=== PATIENT | female | born 1965 | race Caucasian/White ===

== ENCOUNTER 2020-11-25 16:58 | Emergency (ER) | payer BC, SELFPAY ==
[2020-11-25 17:05] VITALS: BP 146/70; PULSE 86; RESP 16; TEMP 36.4; O2SAT 97
--- NOTE | 2020-11-25 17:15 | DI.RAD_ITS ---
Exam(s) XR ANKLE RT COMPLETE EXAM: XR ANKLE RT COMPLETE CLINICAL HISTORY: lateral pain after rotational injury TECHNIQUE: COMPARISON: No exams were available for comparison FINDINGS: Three views were obtained. There is marked soft tissue swelling around the ankle. There may be a anjelica int effusion. No acute fracture identified. Ankle mortise is well maintained. IMPRESSION: RADIATION DOSE DELIVERED: Total DLP
--- NOTE | 2020-11-25 17:16 | W.ED.GENAD ---
Discharge Plan Disposition Patient Disposition: HOME Condition: Good Discharge Details Clinical Impression: Ankle sprain Primary Care Provider: [facility] Provider: Cassie Campa Home Meds and New Rx's Prescriptions: Continued estradiol 0.05 mg/24 hr Patch Weekly 1 patch transdermal .TWICE A WEEK RF: 0 hydrochlorothiazide 100 mg Tablet 100 mg PO DAILY RF: 0 furosemide 20 mg Tablet 20 mg PO DAILY RF: 0 Discharge Instructions Instructions: Ankle Sprain (ED) Additional Instructions: Imaging is reassuring here today. No evidence of fracture. However, I am concerned that you have a significant sprain. Please encourage rest, ice, elevation. Tylenol and/or ibuprofen as needed for discomfort. Please keep splint on until reevaluated by primary care. Please follow-up with your primary care in 2 weeks for reevaluation. If you develop any new or worsening symptoms please seek care urgently once again. Referrals: Samson Chu [ [facility] STAFF PHYSICIAN] - Medical Decision Making Patient is a pleasant 55-year-old female presenting today with chief complaint of right ankle pain. She reports the pain began 4 days ago after she slipped off a log and suffered a rotational injury. She denies other injury at the time of the incident. She did not strike her head, no loss of consciousness. No previous injury or surgery to this ankle. Patient has been ambulating well since the time of the injury but continues to have pain over the lateral malleolus. She denies any radiation of pain. No numbness or tingling. On exam, patient has notable swelling over the lateral malleolus without proximal foot. Associated ecchymosis. 2+ distal pulses. Sensation is intact. She is good range of motion. Achilles is intact. Sensation is intact. No pain over the proximal fibula. Concern for fracture. Patient declines any analgesics. Will obtain x-ray to evaluate for potential fracture. FINDINGS: Bones/joints: No fractures. No blastic or lytic lesions. The ankle mortise joint is well maintained. Moderate ankle joint effusion. The visualized hindfoot and midfoot are grossly well aligned. No hindfoot coalition. Mild spurring at the Achilles calcaneal attachment. Soft tissues: No periostitis or osteolysis. Moderate soft tissue swelling around the ankle, predominantly laterally. No radiopaque foreign bodies. IMPRESSION: 1. No fracture or dislocation. 2. Soft tissue swelling and moderate joint effusion. Discussed the findings with the patient. Diagnosed with sprain. Encourage rest, ice, elevation. Tylenol and ibuprofen as needed for discomfort. She will be fitted with a lace up ankle brace. Advise follow-up with primary care in 2 weeks. Patient has had prolonged healing issues from sprain on the contralateral side. I did advise that she discuss physical therapy with primary care at that time. Return precautions were discussed. All the questions and concerns were addressed and she is in agreement this plan. HPI General Mode of arrival: ambulatory. Date/Time Provider Initiated Documentation: 11/25/20 17:16. Limitations to Documentation: no limitations. Information obtained by: patient and RN notes reviewed. History of Present Illness 55 year old F presents to the emergency department with the chief complaint of right ankle pain, described as moderate, with intensity rated at 5. Quality is described as aching, and is localized to the right and lower extremity. Patient reports no radiation. Patient started experiencing this day(s) (4) and it has been constant. Immobilization improves symptom(s), Movement worsens symptoms . Patient notes no other symptoms.. Patient did receive the following treatments prior to arrival, none Related Data Home Medications Medication Instructions Recorded Confirmed estradiol 1 patch TRANSDERMAL .TWICE A WEEK 11/25/20 11/25/20 furosemide 20 mg PO DAILY 11/25/20 11/25/20 hydrochlorothiazide 100 mg PO DAILY 11/25/20 11/25/20 Allergies Allergy/AdvReac Type Severity Reaction Status Date / Time Sulfa (Sulfonamide AdvReac Nausea Unverified 11/25/20 17:10 Antibiotics) General Stated Complaint: Orthopedic LORENZA: 4 Review of Systems Constitutional Constitutional: Reports as per HPI, Denies chills, Denies fever(s), Denies headache(s) and Denies weakness ENT Ears, Nose, Mouth, and Throat: Denies headache(s) Cardiovascular Cardiovascular: Reports as per HPI Respiratory Respiratory: Reports as per HPI and Denies cough Musculoskeletal Musculoskeletal: Reports as per HPI and Denies tingling Integumentary/Breasts Skin/Breast: Reports as per HPI, Denies rash and Denies wounds Neurologic Neurologic: Reports as per HPI, Denies headache(s), Denies tingling, Denies paresthesias and Denies weakness [facility] Social History (Reviewed 11/25/20 @ 17:31 by FORREST Santana Smoking/Tobacco Use Status: Never Smoking risk assessment performed?: Yes Substance use type: does not use Exam Const General: cooperative, healthy appearing, comfortable, no acute distress, well developed and well groomed Nutritional Appearance: average body habitus and well nourished Orientation: alert and awake Resp Effort & Inspection: normal respiratory effort, able to speak in complete sentences and no respiratory distress Cardio Rate: regular rate Rhythm: regular rhythm Skin General skin exam: ecchymosis (right lateral ankle, proximal foot) Neuro General: patient alert and patient awake Cognition: normal cognition Speech: speech normal Gait: normal gait Motor: muscle tone normal throughout Sensory Exam: no sensory deficits noted Extrem Ankle/foot/toe images: 1. Area of swelling and ecchymosis. Pain is maximal over the lateral malleolus. No pain with palpation of the Achilles, negative Robledo test. No pain of the proximal fifth metatarsal or elsewhere about the foot. Minimal pain associate with palpation of the medial malleolus. No pain of the proximal fibula. Psych Appearance: grossly normal and well kempt Mental Status: mental status grossly normal Speech and Movement: speech and movement normal Course Vital Signs Vital signs: Vital Signs Temperature 36.4 C L 11/25/20 17:05 Pulse 86 11/25/20 17:05 Respiratory Rate 16 11/25/20 17:05 Blood Pressure 146/70 H 11/25/20 17:05 Pulse Oximetry 97 11/25/20 17:05 Temperature 36.4 C L 11/25/20 17:05 Temperature Source Skin 11/25/20 17:05 Pulse 86 11/25/20 17:05 Respiratory Rate 16 11/25/20 17:05 Respiratory Effort 11/25/20 17:05 Blood Pressure 146/70 H 11/25/20 17:05 Blood Pressure Position Sitting 11/25/20 17:05 Pulse Oximetry 97 11/25/20 17:05 Oxygen Delivery Method Room Air 11/25/20 17:05 Oxygen Flow Rate 0 11/25/20 17:05 Pain Level 5 11/25/20 17:13
--- NOTE | 2020-11-25 17:59 | DI.VRAD_ITS ---
PROCEDURE INFORMATION: Exam: XR Right Ankle Exam date and time: 11/25/2020 5:41 PM Age: 55 years old Clinical indication: Other: Lateral pain after rotational injury TECHNIQUE: Imaging protocol: XR Right ankle. Views: 3 or more views. Total images: 3 COMPARISON: No relevant prior studies available. FINDINGS: Bones/joints: No fractures. No blastic or lytic lesions. The ankle mortise joint is well maintained. Moderate ankle joint effusion. The visualized hindfoot and midfoot are grossly well aligned. No hindfoot coalition. Mild spurring at the Achilles calcaneal attachment. Soft tissues: No periostitis or osteolysis. Moderate soft tissue swelling around the ankle, predominantly laterally. No radiopaque foreign bodies. IMPRESSION: 1. No fracture or dislocation. 2. Soft tissue swelling and moderate joint effusion. Dictated and Authenticated by: Merritt Galvan MD. Ordering:VERO Matthwes MD
== END 2020-11-25 18:26 | disposition home or self-care (01) ==
PROVIDERS: Emergency Provider Physician Assistant
DX: S93.491A Sprain of other ligament of right ankle, initial encounter (principal); W17.89XA Other fall from one level to another, initial encounter
CPT/HCPCS: 29515; 99283; 73610